=== PATIENT | female | born 1990 | race American Indian/Alaskan Native ===

== ENCOUNTER 2017-01-26 23:12 | Emergency (ER) | payer BC ==
[2017-01-26 23:57] VITALS: BP 121/74
[2017-01-27 00:43] LABS: Basophils % (Auto) 0.4 % (0.0-1.8); Eosinophils % (Auto) 0.2 % (0.0-4.3); Hematocrit 37.3 % (30.3-42.9); Hemoglobin 12.3 gm/dl (10.1-14.3); Mean Corpuscular HGB Conc 33 % (30-34); Mean Corpuscular Hemoglobin 32 pg (28-32); Mean Corpuscular Volume 96 fl (79-97); Platelet Count 291 K/mm3 (140-440); Red Blood Count 3.87 M/mm3 (3.65-5.03); Red Cell Distribution Width 12.1 % (13.2-15.2); White Blood Count 12.7 K/mm3 (4.5-11.0)
[2017-01-27 01:00] LABS: INR 0.95 (0.87-1.13)
[2017-01-27 01:01] LABS: Partial Thromboplastin Time 29.6 Sec. (24.2-36.6)
[2017-01-27 01:02] LABS: Anion Gap 18 mmol/L; BUN/Creatinine Ratio 17.14; Blood Urea Nitrogen 12 mg/dL (7-17); Calcium 9.1 mg/dL (8.4-10.2); Carbon Dioxide 25 mmol/L (22-30); Glucose 81 mg/dL (65-100); Potassium 4.5 mmol/L (3.6-5.0); Sodium 139 mmol/L (137-145)
--- NOTE | 2017-01-27 05:03 | Emergency Department Report ---
HPI - General Chief Complaint: Syncope Time Seen by Provider: 01/27/17 04:22 - HPI HPI: Patient is a 27-year-old female presents to ED complaining of syncopal episodes that happened earlier today. Patient states she was at home sitting down on the couch when she started to feel her heart racing and chest pain patient states she got up and she blacked out on the chair. patient states after about 30 seconds to 1 minute she woke up patient states she got up again and she blacked out. Patient states she was not doing anything specific or any physical activity. Patient states this is happened to her before. Patient states his last episode was about 2 years ago and she had a workup and had with heart monitor for 48 hours which resulted in no abnormalities. Patient's history takes no medication is allergic to no medication. Patient states she had no fevers/chills/nausea/vomiting/abdominal pain/chest pain/shortness of breath/dizziness/blurry vision/headache or any other problems ED Past Medical Hx - Past Medical History Previous Medical History?: No - Surgical History Past Surgical History?: No - Social History Smoking Status: Never Smoker Substance Use Type: Alcohol - Medications Home Medications: Home Medications Medication Instructions Recorded Confirmed Last Taken Type Fluticasone Propionate [Flonase] 2 sprays NS QDAY #1 bottle 11/16/14 Unknown Rx Loratadine [Claritin] 10 mg PO DAILY #30 tablet 11/16/14 Unknown Rx Promethazine /Codeine 5 ml PO Q6H PRN #150 udc 11/16/14 Unknown Rx [Phenergan/Codeine 6.25-10 mg/5 ml] predniSONE [Deltasone] 40 mg PO QDAY #10 tab 11/16/14 Unknown Rx Sulfamethoxazole/Trimethoprim 1 each PO BID #20 tablet 01/27/17 Unknown Rx [Bactrim DS TAB] ED Review of Systems ROS: Stated complaint: DIZZINESS/CHEST PAIN/EMESIS Other details as noted in HPI Constitutional: denies: chills, fever Eyes: denies: eye pain, eye discharge, vision change ENT: denies: ear pain, throat pain Respiratory: denies: cough, shortness of breath, wheezing Cardiovascular: denies: chest pain, palpitations Endocrine: no symptoms reported Gastrointestinal: denies: abdominal pain, nausea, diarrhea Genitourinary: denies: urgency, dysuria, discharge Musculoskeletal: denies: back pain, joint swelling, arthralgia Skin: denies: rash, lesions Neurological: denies: headache, weakness, paresthesias Psychiatric: denies: anxiety, depression Hematological/Lymphatic: denies: easy bleeding, easy bruising Physical Exam - Physical Exam Vital Signs: Vital Signs 01/26/17 23:48 Temperature 98.9 F Pulse Rate 64 Respiratory 16 Rate Blood Pressure 121/74 Blood Pressure 121/74 [Left] O2 Sat by Pulse 100 Oximetry Physical Exam: GENERAL: Alert and oriented x3, no apparent distress, Normal Gait, atraumatic. HEAD: Head is normocephalic and a-traumatic. EYES: Extra ocular muscles are intact. Pupils are equal, round, and reactive to light and accommodation. MOUTH:Mouth is well hydrated and without lesions. Tonsils nonerythematous or swollen, Uvula midline, Tongue not elevated. Mucous membranes are moist. Posterior pharynx clear, no exudate or lesions. Patent airways. NECK: Supple. Non edematous, No carotid bruits. No lymphadenopathy or thyromegaly. No C-spine tenderness LUNGS: Symetrical with respiration, No wheezing, no rales or crackles, CTAB. HEART: S1, S2 present, regular rate and rhythm without murmur, no rubs, no gallops. ABDOMEN: No organomegaly was noted,Positive bowel sounds, soft, and non- distended. . Nontender to palpation on all Quadrants, NO CVA tenderness. EXTREMITIES/MUSCULOSKELETAL: No cyanosis, clubbing, rash, lesions or edema. Full ROM bilaterally. UE/LE Pulses 2+ bilaterally. LE and UE 5+ strength bilaterally, NEUROLOGIC: The patient is cooperative with no focal neurologic deficits. Cranial nerves II through XII are grossly intact. Normal speech. Normal sensation in bilateral upper extremities, No loss of sensation, No facial droop, firm grasp bilaterally SKIN: Warm and dry, No lesions, No ulceration or induration present. ED Course Vital Signs 01/26/17 23:48 Temperature 98.9 F Pulse Rate 64 Respiratory 16 Rate Blood Pressure 121/74 Blood Pressure 121/74 [Left] O2 Sat by Pulse 100 Oximetry ED Medical Decision Making - Lab Data Result diagrams: 01/27/17 00:26 01/27/17 00:26 - Medical Decision Making 27 year old female presents after syncopal episode. ED course: CBC, CMP, EKG, orthostatic blood pressure, coags, cardiac enzymes, ordered CBC normal, CMP normal, EKG normal sinus rebound orthostatic blood pressures are normal coags normal cardiac enzymes negative. According to the [place] syncope rule patient is a low risk: 1Patient has no history of congestive heart failure 2.patient's hematocrit is less than 30 3.patient normal EKG in the ED 4.patient has no shortness of breath and 5.her systolic blood pressure is greater than 90. Discussed all findings with patient. Patient is alert and oriented 3 patient is neurologically intact patient shows no symptoms CT soft scan of the head is not needed because patient is neurologically intact and shows no neuro deficits Vital signs are normal patient is in no acute respiratory distress. 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 Discussed the patient is symptoms worsen or new symptoms arise to return to ED Critical care attestation.: If time is entered above; I have spent that time in minutes in the direct care of this critically ill patient, excluding procedure time. ED Disposition Clinical Impression: Atypical syncope, Cystitis Disposition: DISCHARGED TO HOME OR SELFCARE Is pt being admited?: No Does the pt Need Aspirin: No Condition: Stable Instructions: Syncope (ED), Urinary Tract Infection in Women (ED) Additional Instructions: Return to ED she have any new or worsening symptoms. Follow-up with her job developer for deaf adults or primary care physician. All labs and testing were normal in the ED today Prescriptions: Sulfamethoxazole/Trimethoprim [Bactrim DS TAB] 1 each PO BID #20 tablet Referrals: MOISÉS CHEEMA MD [Primary Care Provider] - 3-5 Days OSMAN ESTRADA MD [Staff Physician] - 3-5 Days [facility] [Outside] - 3-5 Days [facility] [Outside] - 3-5 Days Forms: Accompanied Note, Work/School Release Form(ED) Time of Disposition: 06:55
[2017-01-27 06:47] LABS: Bilirubin,Urine NEG (Negative); Blood,Urine NEG (Negative); Ketones,Urine TR mg/dL (Negative); Leukocyte Esterase,Urine SM (Negative); Mucus,Urine 2+ /HPF; Nitrite,Urine NEG (Negative); Protein,Urine <15 mg/dL mg/dL (Negative); Urobilinogen,Urine < 2.0 mg/dL (<2.0)
== END 2017-01-27 07:03 | disposition home or self-care (01) ==
LOC: ED 23:12
DX: N30.90 Cystitis, unspecified without hematuria (principal); R55 Syncope and collapse
CPT/HCPCS: 36415; 80048; 81001; 81025; 84484; 85025; 85610; 85730; 93005; 93010

== ENCOUNTER 2017-03-11 09:46 | Emergency (ER) | payer BC ==
[2017-03-11 10:31] LABS: Basophils % (Auto) 0.2 % (0.0-1.8); Eosinophils % (Auto) 0.8 % (0.0-4.3); Hematocrit 38.7 % (30.3-42.9); Hemoglobin 13.1 gm/dl (10.1-14.3); Mean Corpuscular HGB Conc 34 % (30-34); Mean Corpuscular Hemoglobin 33 pg (28-32); Mean Corpuscular Volume 96 fl (79-97); Platelet Count 270 K/mm3 (140-440); Red Blood Count 4.04 M/mm3 (3.65-5.03); Red Cell Distribution Width 11.7 % (13.2-15.2); White Blood Count 9.3 K/mm3 (4.5-11.0)
[2017-03-11 12:35] LABS: Bacteria,Urine 1+ /HPF (Negative); Bilirubin,Urine NEG (Negative); Blood,Urine NEG (Negative); Ketones,Urine NEG (Negative); Leukocyte Esterase,Urine SM (Negative); Mucus,Urine 1+ /HPF; Nitrite,Urine NEG (Negative); Protein,Urine <15 mg/dL mg/dL (Negative)
[2017-03-11] MEDS ORDERED: NORCO 5/325 PO ONE (14:31)
--- NOTE | 2017-03-11 14:44 | Emergency Department Report ---
ED Abdominal Pain HPI - General Chief Complaint: Abdominal Pain Stated Complaint: PASSED OUT/NAUSEA/ABD PAIN Time Seen by Provider: 03/11/17 14:22 Source: patient Mode of arrival: Ambulatory Limitations: No Limitations - History of Present Illness Initial Comments: 27-year-old female presents to the emergency department complaining of right- sided pelvic pain that began this morning. Patient describes sharp pain that does not radiate. Pain has been constant since onset. She reports associated nausea and lightheadedness. Patient states the symptoms are been occurring for quite some time. She also reports multiple syncopal episodes over the past several weeks. Patient states her pain is worse today than has been in the past. She also states that she used the bathroom earlier today she saw some pink when she wiped. Patient states her last menstrual cycle was on 2016. There are no other complaints. MD Complaint: abdominal pain -: Sudden, This morning Location: RLQ Radiation: none Migration to: no migration Severity: moderate Severity scale (0 -10): 6 Quality: sharp Consistency: constant Improves With: nothing Worsens With: nothing Associated Symptoms: nausea, syncope, other (vaginal spotting) - Related Data Previous Rx's Medication Instructions Recorded Last Taken Type Fluticasone Propionate [Flonase] 2 sprays NS QDAY #1 bottle 11/16/14 Unknown Rx Loratadine [Claritin] 10 mg PO DAILY #30 tablet 11/16/14 Unknown Rx HYDROcodone/APAP 5-325 [[place] 1 each PO Q6HR PRN #20 tablet 03/11/17 Unknown Rx 5/325] Allergies Allergy/AdvReac Type Severity Reaction Status Date / Time No Known Allergies Allergy Verified 11/16/14 09:50 ED Review of Systems ROS: Stated complaint: PASSED OUT/NAUSEA/ABD PAIN Other details as noted in HPI Comment: All other systems reviewed and negative Cardiovascular: syncope Gastrointestinal: abdominal pain, nausea Genitourinary: abnormal menses ED Past Medical Hx - Past Medical History Previous Medical History?: No - Surgical History Past Surgical History?: No - Family History Family history: no significant - Social History Smoking Status: Never Smoker Substance Use Type: None - Medications Home Medications: Home Medications Medication Instructions Recorded Confirmed Last Taken Type Fluticasone Propionate [Flonase] 2 sprays NS QDAY #1 bottle 11/16/14 Unknown Rx Loratadine [Claritin] 10 mg PO DAILY #30 tablet 11/16/14 Unknown Rx HYDROcodone/APAP 5-325 [[place] 1 each PO Q6HR PRN #20 tablet 03/11/17 Unknown Rx 5/325] ED Physical Exam - General Limitations: No Limitations General appearance: alert, in no apparent distress - Head Head exam: Present: atraumatic, normocephalic - Eye Eye exam: Present: normal appearance, PERRL, EOMI - ENT ENT exam: Present: normal exam, normal orophraynx, mucous membranes moist - Neck Neck exam: Present: normal inspection, full ROM. Absent: tenderness - Respiratory Respiratory exam: Present: normal lung sounds bilaterally. Absent: respiratory distress - Cardiovascular Cardiovascular Exam: Present: regular rate, normal rhythm, normal heart sounds - GI/Abdominal GI/Abdominal exam: Present: soft, tenderness (mild right lower quadrant tenderness to palpation), normal bowel sounds. Absent: distended, guarding, rebound - Extremities Exam Extremities exam: Present: normal inspection, full ROM. Absent: tenderness - Back Exam Back exam: Present: normal inspection, full ROM. Absent: tenderness - Neurological Exam Neurological exam: Present: alert, oriented X3. Absent: motor sensory deficit - Skin Skin exam: Present: warm, dry, intact ED Course Vital Signs 03/11/17 03/11/17 03/11/17 09:58 14:43 14:45 Temperature 98.7 F Pulse Rate 86 Respiratory 18 18 Rate Blood Pressure 109/75 Blood Pressure [Left] O2 Sat by Pulse 100 100 Oximetry 03/11/17 15:14 Temperature Pulse Rate 71 Respiratory 18 Rate Blood Pressure Blood Pressure 118/74 [Left] O2 Sat by Pulse 99 Oximetry ED Medical Decision Making - Lab Data Result diagrams: 03/11/17 10:08 - Radiology Data Radiology results: report reviewed, image reviewed Pelvic ultrasound is read as negative by radiology. - Medical Decision Making Lab and imaging results reviewed and discussed with the patient. Patient reports feeling better with medication. 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 - Differential Diagnosis abdominal pain, UTI, ectopic , ovarian cyst, ruptured ovarian cyst Critical care attestation.: If time is entered above; I have spent that time in minutes in the direct care of this critically ill patient, excluding procedure time. ED Disposition Clinical Impression: Abdominal pain in female Disposition: DC-01 TO HOME OR SELFCARE Is pt being admited?: No Condition: Stable Instructions: Abdominal Pain (ED) Prescriptions: HYDROcodone/APAP 5-325 [[place] 5/325] 1 each PO Q6HR PRN #20 tablet PRN Reason: Pain Referrals: AVA GLOVER MD [Staff Physician] - 3-5 Days Time of Disposition: 15:55
[2017-03-11 15:17] VITALS: BP 118/74
--- NOTE | 2017-03-11 15:52 | Ultrasound Report ---
Transabdominal and transvaginal pelvic ultrasound. History: Right pelvic pain with vaginal spotting. Findings: The uterus is normal in size and configuration with no focal abnormalities. The endometrial thickness measures 5 mm. The ovaries are normal in size and configuration. No adnexal masses are seen. There are no abnormal fluid collections. Impression: Normal study.
== END 2017-03-11 16:03 | disposition home or self-care (01) ==
LOC: ED 09:46
DX: R10.31 Right lower quadrant pain (principal)
CPT/HCPCS: 36415; 76830; 76856; 81001; 84702; 85025; 86850; 86900; 86901

== ENCOUNTER 2018-01-30 00:55 | Emergency (ER) | payer OTHER, MEDICAID ==
[2018-01-30 01:31] VITALS: BP 129/81
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
[2018-01-30] MEDS ORDERED: NORCO 7.5/325 PO ONE (03:43)
[2018-01-30] MEDS ORDERED: FLEXERIL PO ONE (03:43)
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
== END 2018-01-30 06:30 | disposition home or self-care (01) ==
LOC: EEVIPCON 00:55 → ED 00:55
DX: S46.912A Strain of unspecified muscle, fascia and tendon at shoulder and upper arm level, left arm, initial encounter (principal); S86.912A Strain of unspecified muscle(s) and tendon(s) at lower leg level, left leg, initial encounter; V49.49XA Driver injured in collision with other motor vehicles in traffic accident, initial encounter; Y93.89 Activity, other specified; Y92.89 Other specified places as the place of occurrence of the external cause; Y99.8 Other external cause status
CPT/HCPCS: 70486; 71046; 72125